=== PATIENT | male | born 1970 | race Two or more races ===

== ENCOUNTER 2020-11-10 07:40 | Emergency (ER) | payer OTHER ==
[~2020-11-10] VITALS: Ht 175.3 cm; Wt 88.5 kg
[~2020-11-10 07:40] MED LIST: PNEU16DI2; [UNRECOGNIZED DRUG - OTHER]
[2020-11-10] MEDS ORDERED: VALSARTAN160 MG (07:54)
[2020-11-10] MEDS ORDERED: FENOFIBRATE145 MG (07:54)
== END 2020-11-10 16:16 | disposition home or self-care (01) ==
LOC: ER 07:40
DX: R10.12 Left upper quadrant pain (principal); R19.7 Diarrhea, unspecified